=== PATIENT | female | born 1995 | race Hispanic/Latino ===

== ENCOUNTER 2020-12-28 08:38 | Emergency (ER) | payer MEDICAID, OTHER ==
[~2020-12-28] VITALS: Ht 154.9 cm; Wt 124.3 kg
[2020-12-28] MEDS ORDERED: ONDANSETRON HCL 4 MG/2 ML VIAL IVP SCH (09:15)
[2020-12-28] MEDS ORDERED: SODIUM CHLORIDE 0.9% 1000ML 1,000 ML IV SCH (09:15)
[2020-12-28] MEDS ORDERED: MORPHINE 4 MG SYG (4MG/1ML) IVP SCH (09:15)
[2020-12-28 09:26] LABS: BASOPHILS % (AUTO) 0.1 % (0.0-5.0); EOSINOPHILS % (AUTO) 0.3 % (0.0-8.0); HEMATOCRIT 42.3 % (36-48); MEAN CORPUSCULAR HEMOGLOBIN 23.7 pg (27.0-33.0); MEAN CORPUSCULAR HGB CONC 30.7 g/dL (32.0-36.0); MEAN CORPUSCULAR VOLUME 77.2 fL (79-99); MONOCYTES % (AUTO) 3.1 % (3.0-13.0); NEUTROPHILS % (AUTO) 87.1 % (40.0-77.0); PLATELET COUNT (AUTO) 323 K/uL (130-400); RED BLOOD CELL COUNT(AUTO) 5.48 MIL/uL (4.00-5.50); RED CELL DISTRIBUTION WIDTH 15.5 % (11.0-15.5); WHITE BLOOD COUNT (AUTO) 9.2 K/uL (4.8-10.8)
[2020-12-28 09:37] LABS: CREATININE 0.7 mg/dL (0.5-1.5); POTASSIUM 4.1 mmol/L (3.5-5.1)
[2020-12-28 09:42] LABS: ALBUMIN 3.5 g/dL (3.5-5.0); BILIRUBIN,TOTAL 0.5 mg/dL (0.2-1.0); TOTAL PROTEIN, SERUM 8.1 g/dL (6.0-8.3)
[2020-12-28 09:44] LABS: APPEARANCE,URINE Cloudy (CLEAR); BILIRUBIN,URINE Negative (NEGATIVE); COLOR,URINE Yellow (YELLOW); GLUCOSE, URINE (UA) Negative (NEGATIVE); KETONES,URINE Negative (NEGATIVE); LEUKOCYTE ESTERASE ,URINE Trace (NEGATIVE); NITRATE,URINE Negative (NEGATIVE); OCCULT BLOOD,URINE Moderate (NEGATIVE); PROTEIN,URINE POS 1+ mg/dL (NEGATIVE)
[2020-12-28 09:53] VITALS: BP 165/98
[2020-12-28 09:56] LABS: BACTERIA,URINE Few /HPF (None Seen); MUCUS,URINE Few LPF (None Seen); RBC,URINE 0-1 /HPF (0-1); SQUAMOUS EPITHELIAL CELL,UR Moderate /HPF (0-2)
[2020-12-28 09:57] LABS: HCG,QUAL RESULT NEGATIVE (NEGATIVE)
[2020-12-28 13:35] VITALS: BP 176/111
[2020-12-28] MEDS ORDERED: MAG HYDROX/AL HYDROX/SIMETH ES 30 ML SUSP UDCUP PO ONE (13:45)
[2020-12-28] MEDS ORDERED: LIDOCAINE HCL 2% VISCOUS 15 ML UDCUP PO ONE (13:45)
[2020-12-28 15:28] VITALS: BP 148/95
[2020-12-28] MEDS ORDERED: FAMO20TA8 PO (17:37)
[2020-12-28] MEDS ORDERED: METR-172 PO (18:13)
[2020-12-28] MEDS ORDERED: ACETAMINOPHEN 500 MG TABLET ONE (18:19)
[2020-12-28 18:27] VITALS: BP 153/75
== END 2020-12-28 18:30 | disposition home or self-care (01) ==
LOC: EDH 08:38
DX: R10.9 Unspecified abdominal pain (principal); R19.7 Diarrhea, unspecified; R11.2 Nausea with vomiting, unspecified; E66.9 Obesity, unspecified; Z79.899 Other long term (current) drug therapy
CPT/HCPCS: 36415; 76705; 80053; 81001; 81025; 83690; 85025; 87507; 96374; 96375; 99284; J2270; J2405

== ENCOUNTER 2022-07-25 19:12 | Emergency (ER) | payer OTHER ==
[~2022-07-25] VITALS: Ht 154.9 cm; Wt 128.4 kg
[~2022-07-25 19:12] MED LIST: FAMO20TA8 PO; METR-172 PO
[2022-07-25 20:04] LABS: BASOPHILS % (AUTO) 0.2 % (0.0-5.0); EOSINOPHILS % (AUTO) 0.9 % (0.0-8.0); HEMATOCRIT 38.1 % (36-48); LYMPHOCYTES % (AUTO) 7.2 % (21.0-51.0); MEAN CORPUSCULAR HEMOGLOBIN 21.3 pg (27.0-33.0); MEAN CORPUSCULAR HGB CONC 31.2 g/dL (32.0-36.0); MEAN CORPUSCULAR VOLUME 68.2 fL (79-99); MONOCYTES % (AUTO) 4.3 % (3.0-13.0); PLATELET COUNT (AUTO) 413 K/uL (130-400); RED BLOOD CELL COUNT(AUTO) 5.59 MIL/uL (4.00-5.50); RED CELL DISTRIBUTION WIDTH 18.6 % (11.0-15.5); WHITE BLOOD COUNT (AUTO) 12.7 K/uL (4.8-10.8)
[2022-07-25 20:13] LABS: CREATININE 0.7 mg/dL (0.5-1.5); POTASSIUM 3.4 mmol/L (3.5-5.1)
[2022-07-25 20:21] LABS: ALBUMIN 3.9 g/dL (3.5-5.0)
[2022-07-25] MEDS ORDERED: OSEL75 PO (21:20)
[2022-07-25] MEDS ORDERED: IBUPROFEN 800 MG TAB PO ONE (21:30)
[2022-07-25] MEDS ORDERED: OSELTAMIVIR PHOSPHATE 75 MG CAP PO ONE (21:30)
[2022-07-25 22:38] VITALS: BP 156/104
== END 2022-07-25 22:40 | disposition home or self-care (01) ==
LOC: EDH 19:12
DX: J10.1 Influenza due to other identified influenza virus with other respiratory manifestations (principal); E66.01 Morbid (severe) obesity due to excess calories; Z68.43 Body mass index [BMI] 50.0-59.9, adult; Z20.822 Contact with and (suspected) exposure to COVID-19
CPT/HCPCS: 99283; 87635; 80053; 84703; 85025; 87880; 87804 ×2; 36415; C9803

== ENCOUNTER 2023-06-08 17:54 | Emergency (ER) | payer BC ==
[~2023-06-08] VITALS: Ht 154.9 cm; Wt 133.4 kg
[~2023-06-08 17:54] MED LIST changes: +CYCL-309 PO; +IBUP-2070 PO; +OSEL75 PO
[2023-06-08 18:35] LABS: APPEARANCE,URINE CLEAR (CLEAR); BILIRUBIN,URINE NEGATIVE (NEGATIVE); COLOR,URINE COLORLESS (YELLOW); GLUCOSE, URINE (UA) NEGATIVE (NEGATIVE); KETONES,URINE NEGATIVE (NEGATIVE); LEUKOCYTE ESTERASE ,URINE NEGATIVE Leu/uL (NEGATIVE); NITRATE,URINE NEGATIVE (NEGATIVE); OCCULT BLOOD,URINE SMALL (NEGATIVE); PH,URINE 5.5 (5.0-8.0); PROTEIN,URINE NEGATIVE (NEGATIVE); UROBILINOGEN,URINE 0.2 mg/dL (0.2-1.0)
[2023-06-08 18:37] LABS: ADD UA MICROSCOPIC YES
[2023-06-08 18:38] LABS: BACTERIA,URINE RARE /HPF (None Seen); RBC,URINE 0-1 /HPF (0-1); SQUAMOUS EPITHELIAL CELL,UR MOD /HPF (0-2); WBC,URINE 0-1 /HPF (0-1)
[2023-06-08 18:39] LABS: HCG,QUALITATIVE URINE NEGATIVE (NEGATIVE)
[2023-06-08] MEDS ORDERED: HYDRALAZINE 20MG/ML VIAL IM ONE ×2 (19:00→20:00)
[2023-06-08] MEDS ORDERED: ACETAMINOPHEN 500 MG TABLET PO ONE (19:00)
[2023-06-08 19:15] LABS: RAPID GROUP A STREP negative (NEGATIVE)
[2023-06-08 19:21] LABS: SARS-CoV-2, RNA, NAAT NEGATIVE SARS CoV-2 (NEGATIVE)
[2023-06-08 19:27] LABS: INFLUENZA TYPE A Negative For Type A (NEGATIVE); INFLUENZA TYPE B Negative For Type B (NEGATIVE)
[2023-06-08] MEDS ORDERED: BENZONATATE 100 MG CAPSULE PO STA (19:50)
[2023-06-08] MEDS ORDERED: BENZ200C53 PO (19:53)
[2023-06-08] MEDS ORDERED: LORA10TA7 PO (19:53)
[2023-06-08] MEDS ORDERED: FLUT16H NASAL (19:53)
[2023-06-08] MEDS ORDERED: IBUPROFEN 600 MG TABLET PO ONE (20:00)
[2023-06-08 20:53] LABS: BASOPHILS # (AUTO) 0.04 K/uL (0.00-0.20); BASOPHILS % (AUTO) 0.3 % (0.0-5.0); EOSINOPHILS # (AUTO) 0.29 K/uL (0.00-0.70); EOSINOPHILS % (AUTO) 2.1 % (0.0-8.0); HEMATOCRIT 43.3 % (36-48); IMMATURE GRANULOCYTE ABSOLUTE 0.05 K/uL (0-1); LYMPHOCYTES % (AUTO) 29.6 % (21.0-51.0); MEAN CORPUSCULAR HEMOGLOBIN 21.8 pg (27.0-33.0); MEAN CORPUSCULAR HGB CONC 30.7 g/dL (32.0-36.0); MONOCYTES # (AUTO) 0.8 K/uL (0.1-1.0); MONOCYTES % (AUTO) 5.5 % (3.0-13.0); NEUTROPHILS # (AUTO) 8.4 K/uL (1.8-7.7); NEUTROPHILS % (AUTO) 62.1 % (40.0-77.0); PLATELET COUNT (AUTO) 406 K/uL (130-400); RED CELL DISTRIBUTION WIDTH 19.1 % (11.0-15.5); WHITE BLOOD COUNT (AUTO) 13.5 K/uL (4.8-10.8)
[2023-06-08] MEDS ORDERED: 0.9%NACL 1000ML 1,000 ML IV ONE (21:00)
[2023-06-08] MEDS ORDERED: METOCLOPRAMIDE 10 MG/2 ML VIAL ONE (21:16)
[2023-06-08 21:17] LABS: ALBUMIN 3.8 g/dL (3.5-5.0); BILIRUBIN,TOTAL 0.3 mg/dL (0.2-1.0); CREATININE 0.6 mg/dL (0.5-1.5); TOTAL PROTEIN, SERUM 8.5 g/dL (6.0-8.3)
[2023-06-08 21:19] LABS: POTASSIUM 2.9 mmol/L (3.5-5.1)
[2023-06-08] MEDS ORDERED: METOCLOPRAMIDE 10 MG/2 ML VIAL IM STA (21:19)
[2023-06-08] MEDS ORDERED: POTASSIUM CHLORIDE 10MEQ/100ML 100 ML IV ONE (21:30)
[2023-06-08] MEDS ORDERED: IPRATROPIUM/ALBUTEROL SULFATE 3 ML SOLUTION IH ONE (21:30)
[2023-06-08] MEDS ORDERED: POTASSIUM BICARB/CIT AC 25 MEQ TABLET.EFF PO ONE ×2 (21:30→23:30)
[2023-06-08 21:47] VITALS: PULSE 124; RESP 20
[2023-06-08] MEDS ORDERED: ONDANSETRON 4MG INJ IVP STA (23:32)
[2023-06-08] MEDS ORDERED: 0.9%NACL 1000ML 1,000 ML IV STA (23:32)
[2023-06-08] MEDS ORDERED: ONDANSETRON 4MG INJ ONE (23:33)
[2023-06-08 23:38] LABS: ABG BASE EXCESS -0.7 mmol/L (-2.0-3.0); ABG HCO3 21.6 mmol/L (21.0-28.0); ABG OXYGEN SATURATION 98.3 % (95.0-99.0); ABG PCO2 30 mmHg (32-45); ABG PH 7.482 (7.350-7.450); PO2, ARTERIAL BG 106.3 mmHg (83.0-108.0); VENT MODE, BG RA,21 (ROOM AIR)
[2023-06-09 00:30] VITALS: O2SAT 99
[2023-06-09] MEDS ORDERED: POTASSIUM CHLORIDE 10% ELIXIR 20 MEQ/15 ML UDCUP PO PRN (01:00)
[2023-06-09] MEDS ORDERED: KCL 20 MEQ ERTAB PO PRN (01:00)
[2023-06-09] MEDS ORDERED: MORPHINE 4 MG SYG IV PRN (01:00)
[2023-06-09] MEDS ORDERED: MAGNESIUM 2GM PREMIX 50ML 50 ML IV PRN (01:00)
[2023-06-09] MEDS ORDERED: ONDANSETRON 4MG INJ IV PRN (01:00)
[2023-06-09] MEDS ORDERED: LACTATED RINGERS 1000ML 1,000 ML IV SCH (01:00)
[2023-06-09] MEDS ORDERED: MORPHINE 2 MG SYG IV PRN (01:00)
[2023-06-09] MEDS ORDERED: HYDRALAZINE 20MG/ML VIAL IV PRN (01:00)
[2023-06-09] MEDS ORDERED: POTASSIUM CHLORIDE 20MEQ/100ML 100 ML IV PRN ×2 (01:00)
[2023-06-09 01:39] VITALS: BP 158/74; PULSE 88; RESP 18
[2023-06-09] MEDS ORDERED: ENOXAPARIN SODIUM 40 MG/0.4 ML SYRINGE SQ SCH (09:00)
[2023-06-09] MEDS ORDERED: FAMOTIDINE 20MG VIAL IV SCH (09:00)
== END 2023-06-09 02:17 | disposition left against medical advice (07) ==
LOC: EDH 17:54 → EDHIP 06-09 00:53 → UNDOADMIN 06-09 00:53 → EDH 06-09 02:17
DX: I10 Essential (primary) hypertension (principal); J06.9 Acute upper respiratory infection, unspecified; R05.9 Cough, unspecified; R11.2 Nausea with vomiting, unspecified; E87.6 Hypokalemia; Z88.1 Allergy status to other antibiotic agents; Z88.6 Allergy status to analgesic agent; Z20.822 Contact with and (suspected) exposure to COVID-19
CPT/HCPCS: 99285; 96374; 96361; 71045; 87635; 84484; 80053; 82803; 83880; 85025; 85378; 85651; 87040 ×2; 87880; 87804 ×2; 83605; 81001; 81025; 36415; 96372 ×3; 93005; 36600; 94640; C9803; J7030 ×2; J0360 ×2; J2405; J2765; J3480

== ENCOUNTER 2023-12-06 03:18 | Emergency (ER) | payer BC ==
[~2023-12-06] VITALS: Ht 154.9 cm; Wt 125.2 kg
[2023-12-06] MEDS: NIFEDIPINE 10 MG CAP PO ONE (04:02)
[2023-12-06 04:10] LABS: BASOPHILS # (AUTO) 0.03 K/uL (0.00-0.20); BASOPHILS % (AUTO) 0.5 % (0.0-5.0); EOSINOPHILS # (AUTO) 0.21 K/uL (0.00-0.70); EOSINOPHILS % (AUTO) 3.6 % (0.0-8.0); HEMATOCRIT 41.1 % (36-48); IMMATURE GRANULOCYTE ABSOLUTE 0.01 K/uL (0-1); LYMPHOCYTES # (AUTO) 2.2 K/uL (1.0-4.8); LYMPHOCYTES % (AUTO) 37.7 % (21.0-51.0); MEAN CORPUSCULAR HEMOGLOBIN 22.7 pg (27.0-33.0); MEAN CORPUSCULAR HGB CONC 31.1 g/dL (32.0-36.0); MEAN CORPUSCULAR VOLUME 72.9 fL (79-99); MONOCYTES # (AUTO) 0.5 K/uL (0.1-1.0); MONOCYTES % (AUTO) 8.5 % (3.0-13.0); NEUTROPHILS # (AUTO) 2.9 K/uL (1.8-7.7); NEUTROPHILS % (AUTO) 49.5 % (40.0-77.0); PLATELET COUNT (AUTO) 316 K/uL (130-400); RED BLOOD CELL COUNT(AUTO) 5.64 MIL/uL (4.00-5.50); RED CELL DISTRIBUTION WIDTH 18.6 % (11.0-15.5); WHITE BLOOD COUNT (AUTO) 5.9 K/uL (4.8-10.8)
[2023-12-06 04:12] LABS: APPEARANCE,URINE CLEAR (CLEAR); BILIRUBIN,URINE NEGATIVE (NEGATIVE); COLOR,URINE COLORLESS (YELLOW); GLUCOSE, URINE (UA) NEGATIVE (NEGATIVE); KETONES,URINE NEGATIVE (NEGATIVE); LEUKOCYTE ESTERASE ,URINE NEGATIVE Leu/uL (NEGATIVE); NITRATE,URINE NEGATIVE (NEGATIVE); PH,URINE 6.5 (5.0-8.0); PROTEIN,URINE NEGATIVE (NEGATIVE); UROBILINOGEN,URINE 0.2 mg/dL (0.2-1.0)
[2023-12-06 04:18] LABS: CREATININE 0.6 mg/dL (0.5-1.0); POTASSIUM 3.4 mmol/L (3.5-5.1)
[2023-12-06 04:18] LABS: BACTERIA,URINE RARE /HPF (None Seen); SQUAMOUS EPITHELIAL CELL,UR FEW /HPF (0-2)
[2023-12-06 04:20] LABS: INR <= 0.93 (0.85-1.15); PROTHROMBIN TIME 10.6 SEC (9.6-11.6)
[2023-12-06 04:20] LABS: AMPHET/METH SCREEN,URINE NEGATIVE (NEGATIVE); BARBITURATE SCREEN, URINE NEGATIVE (NEGATIVE); BENZODIAZEPINES SCREEN,URINE NEGATIVE (NEGATIVE); CANNABINOID SCREEN,URINE POSITIVE (NEGATIVE); COCAINE SCREEN,URINE NEGATIVE (NEGATIVE); OPIATE SCREEN,URINE NEGATIVE (NEGATIVE); PHENCYCLIDINE SCREEN,URINE NEGATIVE (NEGATIVE)
[2023-12-06 04:21] LABS: PARTIAL THROMBOPLASTIN TIME 30.9 SEC (26.3-35.5)
[2023-12-06 04:23] LABS: ALBUMIN 3.7 g/dL (3.5-5.0); BILIRUBIN,TOTAL 0.3 mg/dL (0.2-1.0); TOTAL PROTEIN, SERUM 7.9 g/dL (6.0-8.3)
[2023-12-06 04:40] LABS: B-TYPE NATRIURETIC PEPTIDE 10 pg/mL (0-100)
[2023-12-06 04:49] VITALS: BP 146/87; PULSE 100; RESP 18; O2SAT 98
[2023-12-06] MEDS ORDERED: CLON0.1T PO (05:05)
== END 2023-12-06 05:14 | disposition home or self-care (01) ==
LOC: EDH 03:18
DX: I10 Essential (primary) hypertension (principal); Z91.148 Patient's other noncompliance with medication regimen for other reason
CPT/HCPCS: 36415; 71045; 80053; 80305; 81001; 82550; 83880; 84484; 84703; 85025; 85610; 85730; 93005